=== PATIENT | female | born 1980 | race Two or more races ===

== ENCOUNTER 2024-08-04 05:28 | Day surgery (SDC) | payer MEDICAID ==
--- NOTE | 2024-07-28 10:39 | ELECTROCARDIOGRAPH REPORT ---
[facility] Test Date: 2024-07-28 Test Time: 10:37:14 Pat Name: ERENDIRA DUNLAP Department: [facility]-PRE-OP Patient ID: [id number] Room: Gender: F Monotype Mechanic: BENJI : 1980 Requested By: EDGAR BAIRES Order Number: [id number] Reading MD: Dr. ZEYNEP Westbrook Measurements Intervals [place] Rate: 74 P: 48 TN: 159 QRS: 38 QRSD: 97 T: 71 QT: 417 QTc: 463 Interpretive Statements Sinus rhythm Ventricular premature complex Electronically Signed On 08-02-2024 18:30:[address] ZEYNEP Westbrook Please click the below link to view image of tracing.
[2024-07-28 10:43] LABS: BASOPHILS # (AUTO) 0.1 X10'3 (0-0.2); BASOPHILS % (AUTO) 0.6 % (0-1); EOSINOPHILS # (AUTO) 0.3 X10'3 (0-0.9); EOSINOPHILS % (AUTO) 2.4 % (0-6); LYMPHOCYTES # (AUTO) 2.7 X10'3 (1.1-4.8); LYMPHOCYTES % (AUTO) 26.1 % (21-51); MEAN CORPUSCULAR HEMOGLOBIN 28.1 PG (27.0-31.0); MEAN CORPUSCULAR HGB CONC 34.1 g/dL (33.0-36.5); MEAN CORPUSCULAR VOLUME 82.5 FL (78-98); MEAN PLATELET VOLUME 7.1 FL (7.4-10.4); MONOCYTES # (AUTO) 0.5 X10'3 (0-0.9); MONOCYTES % (AUTO) 4.8 % (2-12); NEUTROPHILS # (AUTO) 6.9 X10'3 (1.8-7.7); NEUTROPHILS % (AUTO) 66.1 % (42-75); PRE OP HEMATOCRIT 38.6 % (35.0-45.0); PRE OP HEMOGLOBIN 13.1 g/dL (12.0-16.0); PRE OP PLATELET COUNT 391 X10'3 (140-440); PRE OP WHITE BLOOD COUNT 10.5 10'3 (4.8-10.8); RED BLOOD COUNT 4.67 X10'6 (4.20-5.60); RED CELL DISTRIBUTION WIDTH 13.4 % (11.5-14.5)
[2024-07-28 10:45] LABS: BILIRUBIN,URINE NEGATIVE (Neg); CLARITY,URINE CLEAR (Clear); COLOR,URINE YELLOW (Yellow); GLUCOSE, URINE NEGATIVE (Neg); KETONES,URINE NEGATIVE (Neg); LEUKOCYTE ESTERASE ,URINE NEGATIVE (Neg); NITRITES, URINE NEGATIVE (Neg); OCCULT BLOOD,URINE TRACE-INTACT (Neg); PROTEIN,URINE NEGATIVE (Neg)
[2024-07-28 10:49] LABS: UA COLLECTION TYPE CLN CATCH MIDSTREAM
[2024-07-28 10:53] LABS: BACTERIA,URINE 1+ /HPF (Neg); RBC,URINE 0-2 /HPF (0-2); SQUAMOUS EPITHELIAL CELL,UR MODERATE /LPF (FEW); WBC,URINE 0-4 /HPF (0-4)
[2024-07-28 10:54] LABS: MUCUS STRANDS FEW /LPF (Neg); RENAL CELLS, URINE FEW /HPF; TRANSITIONAL EPI CELLS,URINE FEW /HPF
[2024-07-28 10:58] LABS: ALBUMIN 3.1 G/DL (3.4-5.0); ALBUMIN/GLOBULIN RATIO 0.8 (1.1-1.5); ALKALINE PHOSPHATASE 93 IU/L (46-116); BLOOD UREA NITROGEN 9 MG/DL (7-18); BUN/CREATININE RATIO 14.3 (10.0-20.0); CALCIUM 8.2 MG/DL (8.5-10.1); CHLORIDE 105 MMOL/L (99-107); CREATININE 0.63 MG/DL (0.40-0.90); PRE OP ALT 24 U/L (30-65); PRE OP ANION GAP 6 (8-16); PRE OP AST 15 U/L (10-37); PRE OP BILIRUB, TOTAL 0.5 MG/DL (0.0-1.0); PRE OP GLUCOSE 113 MG/DL (70-104); PRE OP POTASSIUM 4.5 MMOL/L (3.4-5.1); PRE OP SODIUM 139 MMOL/L (135-145); TOTAL CARBON DIOXIDE 28.3 MMOL/L (24-32); TOTAL PROTEIN 7.1 G/DL (6.4-8.2); eGFR > 90 ML/MIN
[2024-07-28 11:21] LABS: HCG SERUM QL NEGATIVE
[~2024-08-04] VITALS: Ht 170.2 cm; Wt 150.3 kg
[2024-08-04] VITALS (13 sets, daily range): BP systolic 135–167; BP diastolic 61–123; PULSE 71–100; RESP 14–25; TEMP 97.2; O2SAT 93–98
[~2024-08-04 05:28] MED LIST: SEMA0.258 SQ
[2024-08-04] MEDS ORDERED: ceFAZolin 2gm in dextrose, iso 50 ML IV ONE (05:30)
[2024-08-04] MEDS: CEFAZOLIN 3GM/DEXTROSE 150mL 150 ML IV ONE (06:48)
[2024-08-04] MEDS: ringers solution, lacted 1,000 ML IV SCH (06:48)
[2024-08-04] MEDS: famotidine 20mg tablet PO ONE (06:48)
[2024-08-04] MEDS ORDERED: bacitracin 15gm ointment TP ONE (06:50)
[2024-08-04] MEDS ORDERED: BUPIVAcaine 2.5mg/ml inj 50ml vial (contains preservative) ONE (06:50)
[2024-08-04] MEDS ORDERED: ROPIVAcaine 0.5% (5mg/ml) 30ml vial ONE (08:03)
[2024-08-04] MEDS ORDERED: fentaNYL/PF 50MCG/1 ML 2ML syringe ONE (08:22)
[2024-08-04] MEDS: bacitracin 15gm ointment TP ONE (09:51)
[2024-08-04] MEDS ORDERED: morphine 2 MG/ML inj. syringe IV PRN (10:30)
[2024-08-04] MEDS ORDERED: morphine 4 MG/ML inj SYRINge IV PRN (10:30)
[2024-08-04] MEDS ORDERED: labetalol 20mg/4ml (5mg/ml) syringe IV PRN (10:30)
[2024-08-04] MEDS ORDERED: ringers solution, lacted 1,000 ML IV SCH (10:30)
[2024-08-04] MEDS ORDERED: enalaprilat 1.25mg/ml 2ml vial IV PRN (10:30)
[2024-08-04] MEDS ORDERED: meperidine/PF 25mg/ml syringe IV PRN ×3 (10:30)
[2024-08-04] MEDS ORDERED: ondansetron/PF 4mg/2ml inj IV PRN (10:30)
[2024-08-04] MEDS ORDERED: proCHLORperazine 10 MG/2 ml inj IV PRN (10:30)
--- NOTE | 2024-08-04 15:02 | OPERATIVE REPORT ---
DATE OF SURGERY: 08/04/2024 DICTATING PHYSICIAN: Augustine Leone MD PREOPERATIVE DIAGNOSES: * Gastrocnemius equinus deformity, left lower extremity. * Chronic Achilles tendon tear, left ankle. * Azalea's deformity, left foot. * Posterior tibial tendinitis with tearing, left ankle. POSTOPERATIVE DIAGNOSES: * Gastrocnemius equinus deformity, left lower extremity. * Chronic Achilles tendon tear, left ankle. * Azalea's deformity, left foot. * Posterior tibial tendinitis with tearing, left ankle. PROCEDURES: * Gastrocnemius recession, left lower extremity. * Achilles tendon debridement with secondary repair, left ankle. * Achilles tendon detachment, posterior calcaneal bone spur resection, Achilles reattachment, left foot. * Posterior tibial tendon repair with debridement, left ankle. SURGEON: Augustine Leone MD. LEAD TANK MECHANIC: None. ANESTHESIA: General, popliteal and saphenous nerve blocks. ANESTHESIOLOGIST: . ESTIMATED BLOOD LOSS: Negligible. COMPLICATIONS: None. IMPLANT/HARDWARE USED: Ossio 4.75 mm suture anchor x 4. INDICATIONS: The patient presented to the office with above-stated chief complaints. The patient's condition has been unresponsive to conservative treatments at this point, thus surgical options were offered at this time along with all potential risks, complications, and expected outcomes being fully explained to the patient's full understanding. No guarantees were given. Clinical and radiographic findings do correlate well with the above diagnosis. DESCRIPTION OF PROCEDURE: The patient was brought to the operating room where general anesthesia was induced on a gurney. The patient was transferred to a prone position on a well-padded operating room table. Care was taken to pad all bony prominences preoperatively. The left full leg was then scrubbed, prepped, and draped in a usual aseptic manner. A thigh tourniquet was inflated to approximately 325 mmHg. A 4 cm linear incision was performed over the medial aspect of the gastrocnemius versus on the left lower extremity. Incision was deepened in layered fashion with care being taken to identify and retract all vital and neurovascular structures. All bleeders were ligated and cauterized as necessary. Next, through meticulous dissection, incision was deepened down to the deep fascia, which was transected exposing the gastrocnemius aponeurosis to the operative field. A #15 scalpel blade was then used to transect the gastrocnemius aponeurosis from lateral to medial with excellent increased dorsiflexion of the left ankle. Correction of the equinus deformity was noted at the time to be excellent. The wound was flushed with copious amounts of sterile saline and closed with 3-0 Vicryl and 3-0 nylon. Next, a 4 cm oblique incision was made along the medial aspect of the posterior tibial tendon and the medial aspect of the left ankle. Again, incision was flushed down to the posterior tibial tendon, which was exposed. There was noted to be significant amount of tenosynovitis within the posterior tibial tendon sheath. This was completely debrided down to healthy tendinous tissue. There was also noted to be some moderate partial-thickness tearing of the posterior tibial tendon. This was also debrided down to healthy tendinous tissue. This was then repaired and retubularized with #0 Vicryl. Next, a 5 cm linear longitudinal incision was performed at the posterior aspect of the Achilles tendon and posterior calcaneus on the left foot and ankle. Again, down to the Achilles tendon, which was exposed into the operative view. The Achilles tendon was then reflected medially and laterally off of the posterior calcaneus. There was noted to be chronic partial-thickness tearing of the Achilles tendon. This was debrided down to healthy tendinous tissue and repaired with #0 Vicryl. Next, a saddle saw was used to resect the posterior calcaneal bossing in a saucerization technique. The deficit was then smoothed with a combination of rongeur and hand rasp. Next, according to standard surgical technique utilizing intraoperative fluoroscopy, 4 Ossio 4.75 mm suture anchors were used to reattach the Achilles tendon to the posterior calcaneus under excellent anatomic tension. The correction of the above-stated deformities were assessed at this time and noted to be excellent. Wounds were flushed with copious amounts of sterile saline. All deep and subcutaneous tissues were reapproximated utilizing 3-0 Vicryl. Skin incisions were reapproximated using 3-0 nylon horizontal mattress suture technique. All wounds were covered with sterile triple ointment, sterile Adaptic, sterile 4 x 4s, sterile Webril followed by stockinette, additional Webril, plaster posterior splint with sugar tongs and Quoc bandage and placed in moderate compressive dressing. Sedation was now discontinued. Tourniquet was deflated with hyperemic response to left foot. The patient was taken to PACU for postoperative monitoring. All vitals were stable and vascular status intact. Radiographs which were satisfactory. The patient was given crutches and a knee scooter. Follow up in my office in approximately 1-2 weeks. Augustine Leone MD TID: [id number] RECEIPT: [id number] RICHELLE/MOHINDER/ALONSO
--- NOTE | 2024-08-15 14:34 | RADIOLOGY REPORT ---
EXAM: DI ANKLE,LIMITED (AP/LAT) CLINICAL INDICATION: ACHILLES TENDON WITH REPAIR SECONDARY RESECTION POSTERIOR BOSSING TECHNIQUE: DI ANKLE,LIMITED (AP/LAT) Comparison: None FINDINGS/IMPRESSION: There is no evidence of acute fracture or dislocation. Surgical cast is noted The alignment is anatomical. There is no radiopaque foreign body.
== END 2024-08-04 11:39 | disposition home or self-care (01) ==
LOC: PAS 05:28
PROVIDERS: ATTEND Podiatrist Foot & Ankle Surgery
DX: M62.462 Contracture of muscle, left lower leg (principal); M76.822 Posterior tibial tendinitis, left leg; M92.62 Juvenile osteochondrosis of tarsus, left ankle; M17.0 Bilateral primary osteoarthritis of knee; S86.012A Strain of left Achilles tendon, initial encounter; X58.XXXA Exposure to other specified factors, initial encounter; Z79.82 Long term (current) use of aspirin; Y93.89 Activity, other specified; Y92.89 Other specified places as the place of occurrence of the external cause; Y99.8 Other external cause status; Z79.899 Other long term (current) drug therapy; Z98.890 Other specified postprocedural states; F17.210 Nicotine dependence, cigarettes, uncomplicated; G89.18 Other acute postprocedural pain; E66.9 Obesity, unspecified; Z68.43 Body mass index [BMI] 50.0-59.9, adult; Z72.89 Other problems related to lifestyle
CPT/HCPCS: 27654; 27687; 28120; 28200; 36415; 64450; 73600; 76942; 80053; 81001; 82948; 84703; 85025; 93005; A6222; C1713; J0131; J0330; J1100; J1885; J2003; J2405; J2704; J2795; J3010; J7030; J7120; Z7506; Z7508; Z7512; A4215; A4618; A6253; A6449; A7000; J3490

== ENCOUNTER 2025-03-06 10:31 | Day surgery (SDC) | payer MEDICAID ==
[2025-03-01 14:59] LABS: MEAN PLATELET VOLUME 7.1 FL (7.4-10.4); PRE OP HEMATOCRIT 39.6 % (35.0-45.0); PRE OP HEMOGLOBIN 13.4 g/dL (12.0-16.0); PRE OP PLATELET COUNT 435 X10'3 (140-440); PRE OP WHITE BLOOD COUNT 10.3 10'3 (4.8-10.8); RED CELL DISTRIBUTION WIDTH 13.3 % (11.5-14.5)
[2025-03-01 15:10] LABS: PREOP HCG, QL SERUM NEGATIVE (NEGATIVE)
[2025-03-01 15:14] LABS: CREATININE 0.74 MG/DL (0.40-0.90); PRE OP ALT 34 U/L (30-65); PRE OP ANION GAP 8 (8-16); PRE OP AST 22 U/L (10-37); PRE OP BILIRUB, TOTAL 0.7 MG/DL (0.0-1.0); PRE OP GLUCOSE 151 MG/DL (70-104); PRE OP POTASSIUM 3.9 MMOL/L (3.4-5.1); PRE OP SODIUM 141 MMOL/L (135-145); TOTAL CARBON DIOXIDE 28.7 MMOL/L (24-32); eGFR 86 ML/MIN
[2025-03-06] VITALS (10 sets, daily range): BP systolic 130–180; BP diastolic 88–111; PULSE 63–78; RESP 11–23; TEMP 98.4; O2SAT 95–100
[~2025-03-06] VITALS: Ht 170.2 cm; Wt 152.5 kg
[2025-03-06] MEDS: Cefazolin 3 GM/100ML NS IVPB 100 ML IV ONE (05:30)
[~2025-03-06 10:31] MED LIST changes: +CHOL500050 PO; +Cefazolin 3 GM/100ML NS IVPB 100 ML IV ONE; +FOLI0.4T3 PO; +METF-1142 PO; +ONDA-104 PO; -SEMA0.258 SQ; +THIA100T70 PO; +ringers solution, lacted 1,000 ML IV SCH
[2025-03-06] MEDS: ringers solution, lacted 1,000 ML IV SCH (11:44)
[2025-03-06] MEDS ORDERED: bacitracin 15gm ointment TP ONE (14:41)
[2025-03-06] MEDS ORDERED: BUPIVAcaine 2.5mg/ml inj 50ml vial (contains preservative) ONE (14:41)
[2025-03-06] MEDS ORDERED: cloNIDine hcl/PF 100mcg/ml inj ONE (14:57)
[2025-03-06] MEDS ORDERED: midazolam 1 mg/ML 2ml injection ONE (15:01)
[2025-03-06] MEDS ORDERED: fentaNYL/PF 50MCG/1 ML 2ML syringe ONE (15:01)
[2025-03-06] MEDS ORDERED: propofol inj 20 ML IV ONE (15:01)
[2025-03-06] MEDS ORDERED: rocuronium 10mg/ml inj IV ONE (15:07)
[2025-03-06] MEDS ORDERED: ROPIVAcaine 0.5% (5mg/ml) 30ml vial ONE (15:07)
[2025-03-06] MEDS ORDERED: enalaprilat 1.25mg/ml 2ml vial IV PRN (15:15)
[2025-03-06] MEDS ORDERED: fentaNYL/PF 50MCG/1 ML 2ML syringe IV PRN ×2 (15:15)
[2025-03-06] MEDS ORDERED: ondansetron/PF 4mg/2ml inj IV PRN (15:15)
[2025-03-06] MEDS ORDERED: morphine 4 MG/ML inj SYRINge IV PRN (15:15)
[2025-03-06] MEDS ORDERED: HYDROmorphone/PF 0.2 MG/ML SYRINGE IV PRN ×2 (15:15)
[2025-03-06] MEDS ORDERED: ringers solution, lacted 1,000 ML IV SCH (15:15)
[2025-03-06] MEDS ORDERED: labetalol 20mg/4ml (5mg/ml) syringe IV PRN (15:15)
[2025-03-06] MEDS: BUPIVAcaine/PF 2.5 mg/ml (0.25%) 30ml vial IJ ONE (15:57)
--- NOTE | 2025-03-06 16:45 | OPERATIVE REPORT ---
DATE OF SURGERY: 03/06/2025 DICTATING PHYSICIAN: KAYDEN MICHEL DPM PREOPERATIVE DIAGNOSES: Right ankle pain, right ankle Achilles tendinosis, right posterior calcaneal bone spur, and right ankle equinus deformity. POSTOPERATIVE DIAGNOSES: Right ankle pain, right ankle Achilles tendinosis, right posterior calcaneal bone spur, and right ankle equinus deformity. PROCEDURES: 1. Gastrocnemius resection, right ankle. 2. Posterior calcaneal bone spur resection, right ankle. 3. Achilles tendon debridement and repair, right ankle. SURGEON: Kayden Michel DPM HOUSING INSPECTORS: Tawanda Castellanos DPM fellow, assistance was needed to decrease tourniquet time, for efficiency, and retraction throughout the entirety of the procedure. ANESTHESIA: General. HEMOSTASIS: A thigh tourniquet at 300 mmHg. FINDINGS: None. COMPLICATIONS: None. SPECIMENS: None. ESTIMATED BLOOD LOSS: Less than 5-10 mL. HARDWARE USED: 4 Ossio 4.75 mm anchors. INDICATIONS: The patient presented to the office with the above-mentioned complaints which have been unresponsive to conservative treatment options. Surgical options have been offered along with all potential risks, complications, and surgical outcomes being fully explained to the patient's level of understanding. No guarantees were given. Clinical and radiographic data correlate with the above diagnosis. DESCRIPTION OF PROCEDURE: The patient was brought to the operating room and placed on the operating table in the prone position. After induction of general anesthesia, a previously received popliteal nerve block, the foot and ankle were prepped and draped in the usual aseptic fashion. A previously applied thigh tourniquet was inflated to 300 mmHg after a timeout was called and preoperative antibiotics were given and dosed appropriately. We then brought our attention to the posterior aspect of the patient's gastrocnemius where 3 fingerbreadths distal to this, we then made a standard linear incision and carefully dissected down to the level of the aponeurosis. The crural fascia was opened up to the operative field. We then dorsiflexed the patient's ankle joint and then we transected the aponeurosis of the gastroc achieving a large amount of dorsiflexion to the ankle. After this, we then continued our dissection and we made a separate incision to the posterior aspect of the Achilles tendon at the attachment of the calcaneus. This was a curvilinear S-type incision. We carefully dissected down to the level of the paratenon, which was opened up to the operative field. The tendon was largely intact, but did have some calcifications and degeneration within the tendon, so therefore, we carefully debulked this appropriately. We then detached the patient's Achilles tendon appropriately to give us access to the posterior calcaneal bone spur, which was carefully resected and saucerized with a rongeur, a sagittal saw, as well as a hand rasp. We did this until we removed the Azalea's deformity as well as the large posterior calcaneal bone spur. There was a large bursal tissue that we carefully excised superior to the calcaneus. After this, we then identified the Achilles tendon and greater than 60% to 70% of the Achilles was still left intact after we debulked and debrided. We then used the parts representative in the room and the control systems designer's guidelines in order to place 4 Ossio drill holes, which we placed 2 loaded anchors, which were threaded into the Achilles tendon. The patient's ankle was held in a plantarflexed position and then we tied down the anchors appropriately and then dunked the anchors into the inferior holes and inferior anchors for appropriate stability. After this, we then reinforced with #0 Vicryl. Final fluoroscopic imaging was taken as well, noting that we had removed the posterior calcaneal bone spur. It was noted that there was excellent removal of the bone spur and the patient had excellent excursion of the tendon with range of motion to the ankle, so therefore we flushed our entire incision with copious amounts of sterile normal saline and closed in a layered fashion. A 3-0 Vicryl was used for closure of subcutaneous tissue and 3-0 nylon was used for skin in a horizontal mattress technique. The incision was then dressed with triple antibiotic ointment followed by Adaptic, 4x4s, and Webril. The patient was placed in a well-padded posterior splint with the foot held at a plantarflexed position. The tourniquet was deflated. The patient was taken out of general anesthesia and placed in the PACU with vital signs stable and vascular status intact to the operative foot. The patient is going to be nonweightbearing on the operative foot and is instructed to follow up with me in approximately 1-2 weeks after surgery. The entire case was performed in a teaching fashion. I was available pre and postoperatively to answer questions of the patient and her family. KAYDEN MICHEL DPM TID: [id number] RECEIPT: [id number] /WEI
== END 2025-03-06 18:23 | disposition home or self-care (01) ==
LOC: PAS 10:31
PROVIDERS: ATTEND Podiatrist Foot & Ankle Surgery
DX: M77.31 Calcaneal spur, right foot (principal); M76.61 Achilles tendinitis, right leg; M21.961 Unspecified acquired deformity of right lower leg; G89.18 Other acute postprocedural pain; E66.01 Morbid (severe) obesity due to excess calories; F17.210 Nicotine dependence, cigarettes, uncomplicated; Z79.1 Long term (current) use of non-steroidal anti-inflammatories (NSAID); Z79.82 Long term (current) use of aspirin; Z79.84 Long term (current) use of oral hypoglycemic drugs; Z79.891 Long term (current) use of opiate analgesic; Z79.899 Other long term (current) drug therapy; Z68.43 Body mass index [BMI] 50.0-59.9, adult
CPT/HCPCS: 27650; 27687; 28119; 36415; 64450; 73600; 76942; 80053; 82948; 84703; 85025; A6222; C1713; J0690; J0735; J2250; J2704; J2795; J3010; J3490; J7030; J7120; Z7506; Z7508; Z7512; 76000; A4215; A4618; A6253; A6449; A7000